=== PATIENT | female | born 1935 | race African-American/Black ===

== ENCOUNTER 2020-12-04 23:22 | Inpatient (IN) | payer MEDICARE ==
[2020-12-04 23:40] LABS: #Monocytes 2.1 10x3/uL (0.0-1.1); #Neutrophils 11.8 10x3/uL (1.5-8.4); %Basophils 0.1 % (0.0-2.0); %Lymphocytes 5.1 % (18.0-47.0); %Monocytes 14.1 % (0.0-10.0); %Neutrophils 79.8 % (40.0-75.0); Hemoglobin 9.6 g/dL (12.0-15.5); Mean Corpuscular HGB CONC 31.6 g/dL (32.0-36.0); Mean Corpuscular Hemoglobin 31.1 pg (27.0-33.0); Mean Corpuscular Volume 98.4 fl (81.6-98.3); Mean Platelet Volume 11.6 fl (7.4-10.4); Platelet Count 257 10x3/uL (150-450); RBC Distribution Width 14.5 % (11.5-14.5); Red Blood Cell (RBC) Count 3.09 10x6/uL (3.90-5.03); White Blood Cell (WBC) Count 14.8 10x3/uL (3.5-10.5)
[2020-12-04 23:44] LABS: Actual Bicarbonate (HCO3v) 25 mEq/L (22-28); Base Excess -0.1 mEq/L (-2.0 to +3.0); Calcium, Ionized (venous) 1.21 mmol/L (1.16-1.32); Chloride (VBG) 103 mmol/L (98-106); Hemoglobin (Hb) 10.7 g/dL (11.7-16.1); Potassium (VBG) 4.55 mmol/L (3.70-5.30); Puncture Site Other Site; Sodium 138.4 mmol/L (133-146); pH (venous) 7.39 (7.32-7.43)
[2020-12-04 23:53] LABS: ALT (SGPT) 26 U/L (8-55); AST (SGOT) 42 U/L (5-34); Albumin 3.4 g/dL (3.4-4.8); Alkaline Phosphatase 77 U/L (40-110); Anion Gap 16 mmol/L (10-20); BUN (Urea Nitrogen) 34 mg/dL (9.8-20.1); Bilirubin, Total 0.5 mg/dL (0.2-1.2); Calc. Creatinine Clearance 0 mL/min (70-130); Calcium 9.8 mg/dL (7.8-10.44); Carbon Dioxide 23 mmol/L (23-31); Chloride 103 mmol/L (98-107); Glucose 431 mg/dL (83-110); Potassium 4.5 mmol/L (3.5-5.1); Protein, Total 7.4 g/dL (5.8-8.1); Sodium 137 mmol/L (136-145)
[2020-12-05 00:21] LABS: CKMB 5.7 ng/mL (0-6.6)
[2020-12-05 01:25] LABS: SARS-CoV-2 NAA Rapid Test Not Detected (NotDetected)
[2020-12-05] MEDS ORDERED: Enoxaparin Sodium 100 MG/ML SYRINGE SC SCH ×2 (02:15→02:22)
[2020-12-05 02:48] LABS: INR-International Normal Ratio 1.2; Lactic Acid 1.8 mmol/L (0.5-2.2); PTT 25.2 sec (22.0-33.0); Prothrombin Time 12.5 sec (9.5-12.1)
[2020-12-05] MEDS ORDERED: Nitroglycerin 2% Ointment 1 INCH/1 GM Packet TOP SCH (03:00)
[2020-12-05] MEDS ORDERED: Aspirin Chewable 81 MG TAB PO SCH (03:00)
[2020-12-05 03:03] LABS: Troponin I 4.457 ng/mL (< 0.028)
[2020-12-05 03:15] VITALS: BMI 36.8
[2020-12-05] MEDS ORDERED: HumaLOG 300 UNITS/3 ML VIAL SC SCH ×2 (03:15→06:45)
[2020-12-05 06:03] LABS: Anion Gap 17 mmol/L (10-20); BUN (Urea Nitrogen) 33 mg/dL (9.8-20.1); Calc. Creatinine Clearance 40 mL/min (70-130); Calcium 9.4 mg/dL (7.8-10.44); Carbon Dioxide 21 mmol/L (23-31); Chloride 107 mmol/L (98-107); Glucose 369 mg/dL (83-110); Potassium 4.6 mmol/L (3.5-5.1); Sodium 140 mmol/L (136-145)
[2020-12-05 06:12] LABS: Critical Call Chem Troponin I RESULT DECREASING; Troponin I 4.347 ng/mL (< 0.028)
[2020-12-05] MEDS ORDERED: Sodium Chloride 0.9% 1,000 ML IV SCH ×2 (06:30→22:30)
[2020-12-05 07:33] VITALS: TEMP 98.4
[2020-12-05] MEDS: Sodium Chloride 0.9% 1,000 ML IV SCH ×4 (08:00→22:40)
[2020-12-05] MEDS ORDERED: Dextrose 5% in Water 1,000 ML IV PRN (08:07)
[2020-12-05] MEDS ORDERED: Dextrose 50% Abboject 50 ML SYRINGE SLOW IVP PRN (08:07)
[2020-12-05] MEDS ORDERED: HumaLOG 300 UNITS/3 ML VIAL SC PRN (08:07)
[2020-12-05] MEDS ORDERED: Communication Order-Pharmacy FS SCH (08:45)
[2020-12-05] MEDS ORDERED: Cefdinir 300 MG CAP PO SCH (09:00)
[2020-12-05] MEDS ORDERED: Lisinopril 20 MG TAB PO SCH (09:00)
[2020-12-05] MEDS ORDERED: Metoprolol Tartrate 50 MG TAB PO SCH (09:00)
[2020-12-05] MEDS ORDERED: Aspirin 81 mg Enteric Coated Tablet PO SCH (09:00)
[2020-12-05] MEDS ORDERED: Nitroglycerin 50 MG/250 ML BOT 250 ML ONE (10:24)
[2020-12-05] MEDS ORDERED: Heparin 10,000 UNITS/ 10 ML VIAL ONE (10:24)
[2020-12-05] MEDS ORDERED: Adenosine 6 MG/2 ML VIAL ONE (10:25)
[2020-12-05] MEDS ORDERED: Lidocaine 1% (PF) 30 ML VIAL ONE (10:26)
[2020-12-05] MEDS ORDERED: Verapamil 5 MG/2 ML VIAL ONE (10:30)
[2020-12-05] MEDS ORDERED: Aggrastat 12.5 MG/250 ML 250 ML ONE (11:47)
[2020-12-05] MEDS ORDERED: TICAGRELOR 90 MG TABLET ONE ×2 (12:14→13:35)
[2020-12-05] MEDS: Aspirin Chewable 81 MG TAB PO SCH (13:42)
[2020-12-05] MEDS: metFORMIN 500 MG TAB PO SCH ×2 (13:43→18:16)
[2020-12-05] MEDS: FERROUS FUMARATE 324 MG PO SCH (13:43)
[2020-12-05] MEDS: Azithromycin 250 MG TAB PO SCH (13:43)
[2020-12-05] MEDS: Nitroglycerin 2% Ointment 1 INCH/1 GM Packet TOP SCH ×2 (13:44→21:00)
[2020-12-05] MEDS: Meropenem 500 MG in Sodium Chloride 0.9% 100 ML IVPB SCH ×2 (13:51→21:00)
[2020-12-05 14:19] LABS: #Eosinphils 0.1 10x3/uL (0.0-0.5); #Monocytes 1.8 10x3/uL (0.0-1.1); #Neutrophils 11.1 10x3/uL (1.5-8.4); %Basophils 0.2 % (0.0-2.0); %Eosinophils 0.9 % (0.0-6.0); %Lymphocytes 5.7 % (18.0-47.0); %Monocytes 13.1 % (0.0-10.0); Hemoglobin 8.3 g/dL (12.0-15.5); Mean Corpuscular HGB CONC 30.9 g/dL (32.0-36.0); Mean Corpuscular Hemoglobin 30.5 pg (27.0-33.0); Mean Corpuscular Volume 98.9 fl (81.6-98.3); Mean Platelet Volume 11.7 fl (7.4-10.4); Platelet Count 227 10x3/uL (150-450); RBC Distribution Width 14.6 % (11.5-14.5); Red Blood Cell (RBC) Count 2.72 10x6/uL (3.90-5.03)
[2020-12-05 16:59] LABS: #Eosinphils 0.1 10x3/uL (0.0-0.5); #Monocytes 2.1 10x3/uL (0.0-1.1); #Neutrophils 13.4 10x3/uL (1.5-8.4); %Basophils 0.2 % (0.0-2.0); %Eosinophils 0.4 % (0.0-6.0); %Lymphocytes 3.5 % (18.0-47.0); %Monocytes 12.7 % (0.0-10.0); %Neutrophils 82.1 % (40.0-75.0); Hemoglobin 10.3 g/dL (12.0-15.5); Mean Corpuscular HGB CONC 30.8 g/dL (32.0-36.0); Mean Corpuscular Hemoglobin 30.4 pg (27.0-33.0); Mean Corpuscular Volume 98.5 fl (81.6-98.3); Mean Platelet Volume 11.8 fl (7.4-10.4); Platelet Count 233 10x3/uL (150-450); RBC Distribution Width 15.2 % (11.5-14.5); Red Blood Cell (RBC) Count 3.39 10x6/uL (3.90-5.03); White Blood Cell (WBC) Count 16.3 10x3/uL (3.5-10.5)
[2020-12-05 17:06] LABS: Lactic Acid 4.3 mmol/L (0.5-2.2)
[2020-12-05] MEDS ORDERED: EPINEPHrine 1 MG/ML AMP ONE ×2 (17:17→17:45)
[2020-12-05] MEDS ORDERED: Oxymetazoline HCl 0.05% ( 15 ML ) NASAL SCH (17:30)
[2020-12-05] MEDS ORDERED: EPINEPHrine 1 MG/10 ML Abboject SYRINGE IVP SCH (17:30)
[2020-12-05 17:35] LABS: D-Dimer Test 9.03 mg/L FEU (0.19-0.50); INR-International Normal Ratio 1.2; PTT 49.5 sec (22.0-33.0); Prothrombin Time 12.4 sec (9.5-12.1)
[2020-12-05] MEDS ORDERED: EPINEPHrine 1 MG/ML AMP IVP SCH (17:45)
[2020-12-05 19:24] LABS: EPI Greater than 300 SEC (67-199)
[2020-12-05 19:25] LABS: Platelet Count 237 thou/uL (130-400)
[2020-12-05] MEDS: HumaLOG 300 UNITS/3 ML VIAL SC PRN ×2 (20:00→22:10)
[2020-12-05 20:20] LABS: ADP Greater than 300 SEC (39-127)
[2020-12-05] MEDS: Atorvastatin Calcium 40 MG TAB PO SCH (21:00)
[2020-12-05] MEDS ORDERED: Atorvastatin Calcium 40 MG TAB PO SCH (21:00)
[2020-12-05 22:00] LABS: Anion Gap 15 mmol/L (10-20); BUN (Urea Nitrogen) 35 mg/dL (9.8-20.1); Calc. Creatinine Clearance 49 mL/min (70-130); Carbon Dioxide 22 mmol/L (23-31); Chloride 107 mmol/L (98-107); Glucose 335 mg/dL (83-110); Potassium 3.8 mmol/L (3.5-5.1); Sodium 140 mmol/L (136-145)
[2020-12-05 22:36] LABS: Lactic Acid 1.8 mmol/L (0.5-2.2)
[2020-12-05 22:44] LABS: #Monocytes 1.6 10x3/uL (0.0-1.1); #Neutrophils 13.8 10x3/uL (1.5-8.4); %Basophils 0.1 % (0.0-2.0); %Eosinophils 0.1 % (0.0-6.0); %Lymphocytes 3.9 % (18.0-47.0); %Monocytes 9.9 % (0.0-10.0); %Neutrophils 85.3 % (40.0-75.0); Hemoglobin 9.4 g/dL (12.0-15.5); Mean Corpuscular HGB CONC 32.1 g/dL (32.0-36.0); Mean Corpuscular Volume 96.7 fl (81.6-98.3); Mean Platelet Volume 11.6 fl (7.4-10.4); Platelet Count 227 10x3/uL (150-450); RBC Distribution Width 15.6 % (11.5-14.5); Red Blood Cell (RBC) Count 3.03 10x6/uL (3.90-5.03); White Blood Cell (WBC) Count 16.2 10x3/uL (3.5-10.5)
[2020-12-06] MEDS: HumaLOG 300 UNITS/3 ML VIAL SC PRN ×3 (00:30→21:45)
[2020-12-06 03:12] LABS: #Monocytes 1.8 10x3/uL (0.0-1.1); #Neutrophils 13.5 10x3/uL (1.5-8.4); %Basophils 0.2 % (0.0-2.0); %Eosinophils 0.2 % (0.0-6.0); %Lymphocytes 3.8 % (18.0-47.0); %Monocytes 11.1 % (0.0-10.0); %Neutrophils 83.6 % (40.0-75.0); Hemoglobin 8.9 g/dL (12.0-15.5); Mean Corpuscular HGB CONC 32.1 g/dL (32.0-36.0); Mean Corpuscular Hemoglobin 30.7 pg (27.0-33.0); Mean Corpuscular Volume 95.5 fl (81.6-98.3); Mean Platelet Volume 11.9 fl (7.4-10.4); Platelet Count 220 10x3/uL (150-450); RBC Distribution Width 15.7 % (11.5-14.5); White Blood Cell (WBC) Count 16.1 10x3/uL (3.5-10.5)
[2020-12-06 03:24] LABS: Lactic Acid 1.8 mmol/L (0.5-2.2)
[2020-12-06 03:30] LABS: ALT (SGPT) 26 U/L (8-55); AST (SGOT) 31 U/L (5-34); Alkaline Phosphatase 68 U/L (40-110); Anion Gap 12 mmol/L (10-20); BUN (Urea Nitrogen) 32 mg/dL (9.8-20.1); Bilirubin, Total 0.6 mg/dL (0.2-1.2); Calc. Creatinine Clearance 63 mL/min (70-130); Calcium 8.8 mg/dL (7.8-10.44); Carbon Dioxide 23 mmol/L (23-31); Chloride 112 mmol/L (98-107); Globulin 3.3 g/dL (2.4-3.5); Glucose 183 mg/dL (83-110); Potassium 3.5 mmol/L (3.5-5.1); Protein, Total 6.3 g/dL (5.8-8.1); Sodium 143 mmol/L (136-145)
[2020-12-06] MEDS: Nitroglycerin 2% Ointment 1 INCH/1 GM Packet TOP SCH (04:57)
[2020-12-06 06:08] LABS: #Monocytes 1.9 10x3/uL (0.0-1.1); #Neutrophils 14.1 10x3/uL (1.5-8.4); %Basophils 0.2 % (0.0-2.0); %Eosinophils 0.2 % (0.0-6.0); %Lymphocytes 4.8 % (18.0-47.0); %Monocytes 10.9 % (0.0-10.0); Hemoglobin 9.1 g/dL (12.0-15.5); Mean Corpuscular HGB CONC 32.5 g/dL (32.0-36.0); Mean Corpuscular Volume 95.2 fl (81.6-98.3); Mean Platelet Volume 11.4 fl (7.4-10.4); Platelet Count 225 10x3/uL (150-450); RBC Distribution Width 15.5 % (11.5-14.5); Red Blood Cell (RBC) Count 2.94 10x6/uL (3.90-5.03)
[2020-12-06] MEDS: Meropenem 500 MG in Sodium Chloride 0.9% 100 ML IVPB SCH ×2 (08:57→21:30)
[2020-12-06] MEDS ORDERED: Aspirin Chewable 81 MG TAB PO SCH (09:00)
[2020-12-06 10:43] LABS: #Monocytes 1.7 10x3/uL (0.0-1.1); #Neutrophils 14.8 10x3/uL (1.5-8.4); %Basophils 0.2 % (0.0-2.0); %Eosinophils 0.2 % (0.0-6.0); %Lymphocytes 4.1 % (18.0-47.0); %Monocytes 9.6 % (0.0-10.0); %Neutrophils 85.2 % (40.0-75.0); Hemoglobin 9.2 g/dL (12.0-15.5); Mean Corpuscular HGB CONC 32.1 g/dL (32.0-36.0); Mean Corpuscular Hemoglobin 30.7 pg (27.0-33.0); Mean Corpuscular Volume 95.7 fl (81.6-98.3); Mean Platelet Volume 11.3 fl (7.4-10.4); Platelet Count 235 10x3/uL (150-450); RBC Distribution Width 15.6 % (11.5-14.5); White Blood Cell (WBC) Count 17.4 10x3/uL (3.5-10.5)
[2020-12-06] MEDS: metFORMIN 500 MG TAB PO SCH ×2 (13:04→17:38)
[2020-12-06] MEDS: Aspirin Chewable 81 MG TAB PO SCH (13:04)
[2020-12-06] MEDS: Azithromycin 250 MG TAB PO SCH (13:04)
[2020-12-06] MEDS: TICAGRELOR 90 MG TABLET PO SCH ×2 (13:04→22:00)
[2020-12-06] MEDS: FERROUS FUMARATE 324 MG PO SCH (13:04)
[2020-12-06 13:14] LABS: Factor VIII Test 396.9 % ACTIVE (56-157)
[2020-12-06 13:15] LABS: Protein C Activity 60 % (78-152)
[2020-12-06] MEDS ORDERED: Metoprolol Tartrate 5 MG/5 ML VIAL IVP SCH (13:45)
[2020-12-06] MEDS: Sodium Chloride 0.65% Nasal 44 ML BOT EA NARE SCH ×3 (15:00→21:30)
[2020-12-06] MEDS: Heparin 10,000 UNITS/ 10 ML VIAL SLOW IVP SCH (15:27)
[2020-12-06] MEDS: Heparin 25,000 units/D5W 500 ML IV SCH (15:29)
[2020-12-06] MEDS: Metoprolol Tartrate 5 MG/5 ML VIAL IVP SCH (21:57)
[2020-12-06] MEDS: Atorvastatin Calcium 40 MG TAB PO SCH (21:59)
[2020-12-06 22:15] LABS: Magnesium 1.8 mg/dL (1.6-2.6); Phosphorus 2.7 mg/dL (2.3-4.7)
[2020-12-06 22:31] LABS: PTT 102.4 sec (22.0-33.0)
[2020-12-07] MEDS: HumaLOG 300 UNITS/3 ML VIAL SC PRN ×2 (04:30→22:56)
[2020-12-07 04:50] LABS: #Monocytes 1.8 10x3/uL (0.0-1.1); #Neutrophils 12.8 10x3/uL (1.5-8.4); %Basophils 0.1 % (0.0-2.0); %Eosinophils 0.1 % (0.0-6.0); %Lymphocytes 4.3 % (18.0-47.0); %Monocytes 11.6 % (0.0-10.0); %Neutrophils 83.1 % (40.0-75.0); Hemoglobin 8.5 g/dL (12.0-15.5); Mean Corpuscular HGB CONC 31.6 g/dL (32.0-36.0); Mean Corpuscular Hemoglobin 30.4 pg (27.0-33.0); Mean Corpuscular Volume 96.1 fl (81.6-98.3); Mean Platelet Volume 11.5 fl (7.4-10.4); Platelet Count 259 10x3/uL (150-450); RBC Distribution Width 15.8 % (11.5-14.5); White Blood Cell (WBC) Count 15.4 10x3/uL (3.5-10.5)
[2020-12-07 05:07] LABS: Anion Gap 15 mmol/L (10-20); BUN (Urea Nitrogen) 37 mg/dL (9.8-20.1); Calc. Creatinine Clearance 54 mL/min (70-130); Calcium 8.9 mg/dL (7.8-10.44); Carbon Dioxide 22 mmol/L (23-31); Chloride 111 mmol/L (98-107); Glucose 234 mg/dL (83-110); Potassium 4.1 mmol/L (3.5-5.1); Sodium 144 mmol/L (136-145)
[2020-12-07] MEDS ORDERED: Sodium Chloride 0.9% 1,000 ML IV SCH (05:15)
[2020-12-07 06:31] LABS: PTT 72.4 sec (22.0-33.0)
[2020-12-07] MEDS: Aspirin Chewable 81 MG TAB PO SCH (08:21)
[2020-12-07] MEDS: Azithromycin 250 MG TAB PO SCH (08:21)
[2020-12-07] MEDS: metFORMIN 500 MG TAB PO SCH ×2 (08:21→16:30)
[2020-12-07] MEDS: FERROUS FUMARATE 324 MG PO SCH (08:21)
[2020-12-07] MEDS: TICAGRELOR 90 MG TABLET PO SCH ×2 (08:22→19:42)
[2020-12-07] MEDS: Sodium Chloride 0.65% Nasal 44 ML BOT EA NARE SCH ×3 (08:35→20:58)
[2020-12-07] MEDS: Meropenem 500 MG in Sodium Chloride 0.9% 100 ML IVPB SCH ×3 (08:35→23:20)
[2020-12-07] MEDS: Metoprolol Tartrate 5 MG/5 ML VIAL IVP SCH ×2 (08:36→21:00)
[2020-12-07] MEDS ORDERED: Furosemide 40 MG/4 ML VIAL SLOW IVP SCH (09:15)
[2020-12-07 11:07] LABS: HEX PHOS LA Tube 1 46.4 SEC; HEX PHOS LA Tube 2 37.6 SEC; Hexagonal Phospholipid Neut 8.7 SEC (0-8.0)
[2020-12-07 13:26] VITALS: BP 127/100
[2020-12-07 19:11] LABS: PTT Greater than 139.0 sec (22.0-33.0)
[2020-12-07] MEDS: Atorvastatin Calcium 40 MG TAB PO SCH (19:42)
[2020-12-08 04:23] LABS: #Eosinphils 0.1 10x3/uL (0.0-0.5); #Monocytes 1.8 10x3/uL (0.0-1.1); #Neutrophils 14.8 10x3/uL (1.5-8.4); %Basophils 0.2 % (0.0-2.0); %Eosinophils 0.6 % (0.0-6.0); %Lymphocytes 4.1 % (18.0-47.0); %Neutrophils 83.9 % (40.0-75.0); Hemoglobin 8.1 g/dL (12.0-15.5); Mean Corpuscular HGB CONC 32.4 g/dL (32.0-36.0); Mean Corpuscular Volume 95.8 fl (81.6-98.3); Mean Platelet Volume 11.2 fl (7.4-10.4); Platelet Count 246 10x3/uL (150-450); RBC Distribution Width 15.7 % (11.5-14.5); Red Blood Cell (RBC) Count 2.61 10x6/uL (3.90-5.03); White Blood Cell (WBC) Count 17.6 10x3/uL (3.5-10.5)
[2020-12-08] MEDS: HumaLOG 300 UNITS/3 ML VIAL SC PRN (04:30)
[2020-12-08 04:38] LABS: Anion Gap 14 mmol/L (10-20); BUN (Urea Nitrogen) 31 mg/dL (9.8-20.1); Calc. Creatinine Clearance 68 mL/min (70-130); Calcium 8.5 mg/dL (7.8-10.44); Carbon Dioxide 25 mmol/L (23-31); Chloride 111 mmol/L (98-107); Glucose 264 mg/dL (83-110); Potassium 3.1 mmol/L (3.5-5.1); Sodium 147 mmol/L (136-145)
[2020-12-08] MEDS: metFORMIN 500 MG TAB PO SCH ×2 (08:09→18:23)
[2020-12-08] MEDS: Meropenem 500 MG in Sodium Chloride 0.9% 100 ML IVPB SCH ×2 (08:09→16:43)
[2020-12-08] MEDS: Aspirin Chewable 81 MG TAB PO SCH (08:09)
[2020-12-08] MEDS: Sodium Chloride 0.65% Nasal 44 ML BOT EA NARE SCH ×3 (09:01→22:04)
[2020-12-08] MEDS: TICAGRELOR 90 MG TABLET PO SCH ×2 (09:01→22:04)
[2020-12-08] MEDS: FERROUS FUMARATE 324 MG PO SCH (09:01)
[2020-12-08] MEDS: Metoprolol Tartrate 5 MG/5 ML VIAL IVP SCH ×2 (09:01→22:03)
[2020-12-08] MEDS: Azithromycin 250 MG TAB PO SCH (09:01)
[2020-12-08] MEDS: Atorvastatin Calcium 40 MG TAB PO SCH (22:04)
[2020-12-09] MEDS: Meropenem 500 MG in Sodium Chloride 0.9% 100 ML IVPB SCH ×4 (00:31→23:41)
[2020-12-09] MEDS: Heparin 25,000 units/D5W 500 ML IV SCH (03:21)
[2020-12-09] MEDS: HumaLOG 300 UNITS/3 ML VIAL SC PRN (06:09)
[2020-12-09 06:32] LABS: #Monocytes 1.7 10x3/uL (0.0-1.1); #Neutrophils 14.6 10x3/uL (1.5-8.4); %Basophils 0.1 % (0.0-2.0); %Eosinophils 0.1 % (0.0-6.0); %Lymphocytes 3.4 % (18.0-47.0); %Monocytes 9.7 % (0.0-10.0); %Neutrophils 85.1 % (40.0-75.0); Hemoglobin 8.3 g/dL (12.0-15.5); Mean Corpuscular HGB CONC 31.1 g/dL (32.0-36.0); Mean Corpuscular Hemoglobin 30.9 pg (27.0-33.0); Mean Corpuscular Volume 99.3 fl (81.6-98.3); Mean Platelet Volume 11.8 fl (7.4-10.4); Platelet Count 251 10x3/uL (150-450); RBC Distribution Width 16.2 % (11.5-14.5); Red Blood Cell (RBC) Count 2.69 10x6/uL (3.90-5.03); White Blood Cell (WBC) Count 17.2 10x3/uL (3.5-10.5)
[2020-12-09 06:35] LABS: Anion Gap 18 mmol/L (10-20); BUN (Urea Nitrogen) 34 mg/dL (9.8-20.1); Calc. Creatinine Clearance 60 mL/min (70-130); Calcium 8.6 mg/dL (7.8-10.44); Carbon Dioxide 22 mmol/L (23-31); Chloride 109 mmol/L (98-107); Glucose 378 mg/dL (83-110); Potassium 3.4 mmol/L (3.5-5.1); Sodium 146 mmol/L (136-145)
[2020-12-09 07:18] LABS: PTT 101.9 sec (22.0-33.0)
[2020-12-09] MEDS ORDERED: Meropenem 500 MG VIAL ONE (08:51)
[2020-12-09] MEDS: metFORMIN 500 MG TAB PO SCH ×2 (08:57→15:43)
[2020-12-09] MEDS: FERROUS FUMARATE 324 MG PO SCH (08:58)
[2020-12-09] MEDS: TICAGRELOR 90 MG TABLET PO SCH ×2 (08:58→19:58)
[2020-12-09] MEDS: Aspirin Chewable 81 MG TAB PO SCH (08:58)
[2020-12-09] MEDS: Metoprolol Tartrate 5 MG/5 ML VIAL IVP SCH ×2 (09:00→20:43)
[2020-12-09] MEDS: Sodium Chloride 0.65% Nasal 44 ML BOT EA NARE SCH ×3 (09:05→20:43)
[2020-12-09] MEDS: Heparin 10,000 UNITS/ 10 ML VIAL SLOW IVP SCH (13:00)
[2020-12-09] MEDS: Atorvastatin Calcium 40 MG TAB PO SCH (19:58)
[2020-12-10] MEDS: HumaLOG 300 UNITS/3 ML VIAL SC PRN (02:52)
[2020-12-14 14:31] LABS: Cardiolipin IgA Ab 6.7 APL-U/mL (<14 Negative); Cardiolipin IgG Ab 1.1 GPL-U/mL (<10 Negative); Cardiolipin IgM Ab 1.1 MPL-U/mL (<10 Negative); EliA APS New Method **** NEW METHOD ****
[2021-01-01 18:37] LABS: Activated Protein C Resistance 2.8 ratio (.)
== END 2020-12-10 07:21 | disposition expired | DRG 246 ==
LOC: CSHERS 23:22 → CSHTELE 12-05 02:52 → OBSVTOIN 12-05 12:21 → CSHICU 12-05 17:07
PROVIDERS: ADMIT Family Medicine; ATTEND Hospitalist
PROC: 027135Z Dilation of Coronary Artery, Two Arteries with Two Drug-eluting Intraluminal Devices, Percutaneous Approach (ICD-10-PCS; principal; 2020-12-05)
PROC: B2111ZZ Fluoroscopy of Multiple Coronary Arteries using Low Osmolar Contrast (ICD-10-PCS; 2020-12-05)
PROC: 2Y41X5Z Packing of Nasal Region using Packing Material (ICD-10-PCS; 2020-12-05)
PROC: 02HV33Z Insertion of Infusion Device into Superior Vena Cava, Percutaneous Approach (ICD-10-PCS; 2020-12-05)
PROC: 30233N1 Transfusion of Nonautologous Red Blood Cells into Peripheral Vein, Percutaneous Approach (ICD-10-PCS; 2020-12-05)
PROC: 093K7ZZ Control Bleeding in Nasal Mucosa and Soft Tissue, Via Natural or Artificial Opening (ICD-10-PCS; 2020-12-05)
PROC: 3E053XZ Introduction of Vasopressor into Peripheral Artery, Percutaneous Approach (ICD-10-PCS; 2020-12-05)
DX: I21.4 Non-ST elevation (NSTEMI) myocardial infarction (principal); J18.9 Pneumonia, unspecified organism; G93.41 Metabolic encephalopathy; A41.9 Sepsis, unspecified organism; R65.21 Severe sepsis with septic shock; N17.9 Acute kidney failure, unspecified; R04.2 Hemoptysis; D62 Acute posthemorrhagic anemia; G30.9 Alzheimer's disease, unspecified; R04.0 Epistaxis; Z66 Do not resuscitate; Z20.822 Contact with and (suspected) exposure to COVID-19; F02.80 Dementia in other diseases classified elsewhere, unspecified severity, without behavioral disturbance, psychotic disturbance, mood disturbance, and anxiety; M06.9 Rheumatoid arthritis, unspecified; I10 Essential (primary) hypertension; E11.42 Type 2 diabetes mellitus with diabetic polyneuropathy; E11.65 Type 2 diabetes mellitus with hyperglycemia; I49.5 Sick sinus syndrome; G47.411 Narcolepsy with cataplexy; I25.10 Atherosclerotic heart disease of native coronary artery without angina pectoris; R13.10 Dysphagia, unspecified; R62.7 Adult failure to thrive; Z88.0 Allergy status to penicillin; Z79.84 Long term (current) use of oral hypoglycemic drugs; Z79.82 Long term (current) use of aspirin; Z79.899 Other long term (current) drug therapy; Z90.710 Acquired absence of both cervix and uterus; Z82.49 Family history of ischemic heart disease and other diseases of the circulatory system; Z80.49 Family history of malignant neoplasm of other genital organs; I08.0 Rheumatic disorders of both mitral and aortic valves; Z68.36 Body mass index [BMI] 36.0-36.9, adult
CPT/HCPCS: 0240U; 36415; 36416; 36430; 70450; 71045; 80048; 80053; 82010; 82553; 82805; 83090; 83605; 83735; 83880; 84100; 84484; 85025; 85240; 85300; 85303; 85305; 85307; 85347; 85379; 85576; 85598; 85610; 85730; 86147; 86850; 86900; 86901; 92928; 93005; 93010; 93454; 94640; 94760; 96372; C1874; C1887; C9600; G0378; J0153; J0171; J1644; J1650; J1815; J1940; J2001; J2185; J3246; J3490; J7620; P9016